=== PATIENT | male | born 2005 | race Caucasian/White ===

== ENCOUNTER 2024-11-08 02:59 | Emergency (ER) | payer BC ==
[2024-11-08] MEDS ORDERED: Sodium Chloride 0.9% 2.5 ML Syringe FLUSH PRN (03:16)
[2024-11-08] MEDS ORDERED: Sodium Chloride 0.9% 10 ML Syringe FLUSH PRN (03:16)
[2024-11-08 03:25] LABS: BASOPHILS ABSOLUTE AUTO 0.04 K/uL (0.00-0.20); BASOPHILS PERCENT AUTO 0.5 % (0.0-1.0); EOSINOPHILS ABSOLUTE AUTO 0.06 K/uL (0.00-0.45); EOSINOPHILS PERCENT AUTO 0.8 % (0.0-6.0); IMMATURE GRAN ABSOLUTE AUTO 0.02 K/uL (0.00-0.05); IMMATURE GRAN PERCENT AUTO 0.3 % (0.0-0.4); LYMPHOCYTES ABSOLUTE AUTO 2.54 K/uL (1.00-4.80); LYMPHOCYTES PERCENT AUTO 32.1 % (24.0-44.0); MEAN PLATELET VOLUME 8.3 fL (9.4-12.4); MONOCYTES ABSOLUTE AUTO 0.54 K/uL (0.00-0.80); MONOCYTES PERCENT AUTO 6.8 % (0.0-8.0); NEUTROPHILS ABSOLUTE AUTO 4.72 K/uL (1.80-7.70); NEUTROPHILS PERCENT AUTO 59.5 % (41.0-71.0); NRBC ABSOLUTE 0.00 K/uL (0.00-0.02); NRBC PERCENT 0.0 /100WBC (0.0-0.2); PLATELET COUNT,PLT 171 K/uL (150-400); RED BLOOD CELL COUNT 5.40 M/uL (4.52-5.90); WHITE BLOOD CELL COUNT,WBC 7.92 K/uL (3.9-11.3)
[2024-11-08 04:09] LABS: A/G RATIO 1.4 (0.9-1.6); ALANINE AMINOTRANSFERASE,ALT 28 IU/L (14-63); ASPARTATE AMNIOTRANSFERASE,AST 23 IU/L (15-37); BILIRUBIN TOTAL 0.5 mg/dL (0.2-1.0); BLOOD UREA NITROGEN,BUN 12 mg/dL (7.0-18.0); CARBON DIOXIDE,CO2 28.0 mmol/L (21.0-32.0); CHLORIDE,CL 104 mmol/L (98-107); CREATINE KINASE,CK 290 U/L (26-308); CREATININE 0.9 mg/dL (0.8-1.3); GLUCOSE RANDOM 109 mg/dL (74-106); POTASSIUM,K 3.3 mmol/L (3.5-5.1); PROTEIN TOTAL,TP 7.0 g/dL (6.4-8.2); SODIUM,NA 143 mmol/L (136-148); TSH ULTRASENSITIVE 1.84 uIU/mL (0.36-3.74)
[2024-11-08 04:12] LABS: ESTIMATED GFR 125 mL/min (>60); ETHANOL BLOOD MEDICAL 347 mg/dL
[2024-11-08 08:21] LABS: APPEARANCE,URINE CLEAR; GLUCOSE,URINE NEGATIVE (NEGATIVE); OCCULT BLOOD,URINE NEGATIVE (NEGATIVE)
[2024-11-08 09:02] LABS: AMPHETAMINES SCREEN, URINE NEGATIVE (CUTOFF=500); BUPRENORPHINE SCREEN,URINE NEGATIVE (CUTOFF=10); METHADONE SCREEN, URINE NEGATIVE (CUTOFF=200); METHAMPHETAMINES SCREEN, URINE NEGATIVE (CUTOFF=500); OXYCODONE SCREEN,URINE NEGATIVE (CUT0FF=100); PCP SCREEN,URINE NEGATIVE (CUTOFF=25); THC SCREEN,URINE 20 NG/ML NEGATIVE (CUTOFF=50)
== END 2024-11-08 10:35 | disposition home or self-care (01) ==
LOC: MW.ED 02:59
DX: F10.120 Alcohol abuse with intoxication, uncomplicated (principal); R41.82 Altered mental status, unspecified; Y90.8 Blood alcohol level of 240 mg/100 ml or more
CPT/HCPCS: 36415; 70450; 71045; 72125; 72170; 80053; 80143; 80179; 80305; 80307; 81003; 82550; 83690; 83735; 84443; 84484; 85025; 93005; 96360; 96361; 99284; J7030; 93010